=== PATIENT | female | born 1975 | race Caucasian/White ===

== ENCOUNTER 2021-03-15 05:50 | Inpatient (IN) | payer OTHER ==
[~2021-03-15] VITALS: Ht 170.2 cm; Wt 139.4 kg
--- NOTE | 2021-03-15 06:33 | RAD ---
EXAM: AP View of the chest DATE: 03/15/2021 6:21 AM INDICATION: Reason: soa / Spl. Instructions: / History: COMPARISON: No Prior FINDINGS: The heart is not enlarged. Mediastinal and hilar contours are normal. Patchy bibasilar airspace opacities as well as left midlung opacities likely consolidative process villa ch as pneumonia. No pleural effusion or pneumothorax. IMPRESSION: Patchy bibasilar airspace opacities as well as left midlung opacities likely consolidative process villa ch as pneumonia. Electronically signed by: Lyndon Chandra MD (03/15/2021 6:31 AM) DIYA
--- NOTE | 2021-03-15 06:52 | PHYS DOC ---
Past History Additional Past Medical Histor: systemic vasculitis Past Surgical History: Appendectomy, Cholecystectomy, Hysterectomy, Other Additional Past Surgical Histo: back surgery General Adult EDM: Chief Complaint: MULTIPLE COMPLAINTS HPI: HPI: 45-year-old female past medical history of autoimmune hepatitis (on prednisone 5mg daily), presents to the ED with complaints of headache, frontal sinus pressure, cough, fatigue and nausea stating she tested positive for Covid on Feb. Associated dyspnea and lost of taste/smell. Has not missed any of her prednisone. Is not a tobacco smoker. Is not vaccinated for Covid. PCP is with [facility]. Review of Systems: Review of Systems: Constitutional: Denies fever or chills Eyes: Denies change in visual acuity HENT: Denies hearing loss or sore throat Respiratory: Denies increased work of breathing or hemoptysis Cardiovascular: Denies chest pain or edema GI: Denies abdominal pain, vomiting, bloody stools or diarrhea : Denies dysuria or vaginal bleeding Musculoskeletal: Denies back pain or joint pain Integument: Denies rash or diaphoresis Neurologic: Denies focal weakness or sensory changes Endocrine: Denies polyuria or polydipsia Lymphatic: Denies swollen glands Psychiatric: Denies depression or anxiety Current Medications: Current Meds: Current Medications Medications (Trade) Dose Ordered Sig/Linda Start Time Stop Time Status Last Admin Dose Admin Acetaminophen (Tylenol) 650 mg 1X ONCE 03/15/21 07:00 03/15/21 07:01 Dexamethasone Sodium Phosphate (Decadron) 10 mg 1X ONCE 03/15/21 07:00 03/15/21 07:01 Sodium Chloride 1,000 ml @ 1,000 mls/hr 1X ONCE 03/15/21 07:00 03/15/21 07:59 Allergies: Allergies: Allergies Coded Allergies Type Severity Reaction Last Updated Verified Sulfa (Sulfonamide Antibiotics) Allergy Intermediate 03/15/21 Yes Physical Exam: PE: Constitutional: Well developed, well nourished, no acute distress, non-toxic appearance, obese HENT: Normocephalic, atraumatic, Eyes: EOMI, conjunctiva normal, no discharge. Neck: Normal range of motion, supple, Cardiovascular: S1/2 present, tachycardic Lungs & Thorax: Speaking in full sentences, bilateral equal chest rise, no tachypnea or increased work of breathing, 89% on room air Abdomen: soft, no tenderness, Skin: Warm, dry, no erythema, no rash. [] Back: No tenderness, no CVA tenderness. [] Extremities: No tenderness, no cyanosis, no lower extremity edema Neurologic: Alert and oriented X 3, normal motor function, normal sensory function, no focal deficits noted. [] Psychologic: Affect normal, judgement normal, mood normal. [] Current Patient Data: Vital Signs: Vital Signs Date Time Temp Pulse Resp B/P (MAP) Pulse Ox O2 Delivery O2 Flow Rate FiO2 03/15/21 06:10 102.9 106 20 147/90 (109) 88 Room Air EKG: EKG: Sinus tachycardia 106 bpm, left axis deviation, normal intervals, T wave inversion in lead II, 3, aVF, V2 through V6, no ST elevation or ST depression, no active chest pain Radiology/Procedures: Radiology/Procedures: IMAGING REPORT Signed PATIENT: ALPHONSO BOGGS ACCOUNT: [id number] : 1975 LOCATION: ER AGE: 45 SEX: F EXAM STATUS: REG ER ORD. PHYSICIAN: CARLOS LUNA DO REASON: soa PROCEDURE: PORTABLE CHEST 1V EXAM: AP View of the chest DATE: 03/15/2021 6:21 AM INDICATION: Reason: soa / Spl. Instructions: / History: COMPARISON: No Prior FINDINGS: The heart is not enlarged. Mediastinal and hilar contours are normal. Patchy bibasilar airspace opacities as well as left midlung opacities likely consolidative process such as pneumonia. No pleural effusion or pneumothorax. IMPRESSION: Patchy bibasilar airspace opacities as well as left midlung opacities likely consolidative process such as pneumonia. Electronically signed by: Lyndon Forbes MD (03/15/2021 6:31 AM) [facility] DICTATED AND SIGNED BY: LYNDON FORBES MD DATE: 03/15/21 0631 CC: ALEN MEJÍA MD; CARLOS LUNA DO ~MTH0 0 Heart Score: C/O Chest Pain: No Risk Factors: Risk Factors: DM, Current or recent (<one month) smoker, HTN, HLP, family history of CAD, obesity. Risk Scores: Score 0 - 3: 2.5% MACE over next 6 weeks - Discharge Home Score 4 - 6: 20.3% MACE over next 6 weeks - Admit for Clinical Observation Score 7 - 10: 72.7% MACE over next 6 weeks - Early Invasive Strategies Course & Med Decision Making: Course & Med Decision Making Pertinent Labs and Imaging studies reviewed. (See chart for details) COVID-19 CRITERIA: The patient was evaluated during the global COVID-19 pandemic, and that diagnosis was suspected/considered upon their initial presentation. Their evaluation, treatment and testing was consistent with current guidelines for patients who present with complaints or symptoms that may be related to COVID-19. I have spoken with the patient and/or caregivers. I have explained the patient's condition, diagnosis and treatment plan based on the information available to me at this time. I have answered the patient's and/or caregivers questions and answered any concerns. The patient and/or caregivers have as good an understanding of the patient's diagnosis, condition and treatment plan as can be expected at this point. The patient has been stabilized within the capability of the emergency department. The patient will be transported for further care and management or will be moved to an observation or inpatient service. I have communicated with the staff or medical practitioner taking over this patient's care. Mick Disclaimer: Dragon Disclaimer: This electronic medical record was generated, in whole or in part, using a voice recognition dictation system. Departure Departure: Impression: Primary Impression: COVID-19 Additional Impressions: Sepsis Pneumonia On supplemental oxygen by nasal cannula Disposition: ADMITTED INPATIENT Admitting Physician: Bo Booth Condition: STABLE Referrals: ALEN MEJÍA MD (PCP) CARLOS LUNA DO Mar 15, 2021 06:52
[2021-03-15] MEDS ORDERED: DEXAMETHASONE SOD PHOS 10 MG/ML VIAL. IVP ONE (07:00)
[2021-03-15] MEDS ORDERED: IV NORMAL SALINE 1,000ML 1,000 ML IV ONE (07:00)
[2021-03-15] MEDS ORDERED: ACETAMINOPHEN 325 MG TABLET PO ONE (07:00)
[2021-03-15 07:15] LABS: BGAS PH 7.48 (7.35-7.45)
[2021-03-15] MEDS ORDERED: AZITHROMYCIN 500 MG in IV NORMAL SALINE 250ML 250 ML IV ONE (07:15)
[2021-03-15] MEDS ORDERED: FAMOTIDINE 20 MG/2 ML VIAL IVP ONE (07:30)
[2021-03-15] MEDS ORDERED: ONDANSETRON PF 4 MG/2 ML VIAL. IVP ONE (07:30)
[2021-03-15] MEDS ORDERED: METOCLOPRAMIDE HCL 10 MG/2 ML VIAL. IVP ONE (07:30)
[2021-03-15 07:53] LABS: BASO % 0 % (0-3); EOS % 0 % (0-3); HEMATOCRIT 41.9 % (36.0-47.0); HEMOGLOBIN 14.2 g/dL (12.0-15.5); LYMPH # 0.4 x10^3/uL (1.0-4.8); LYMPH % 14 % (24-48); MEAN CORPUSCULAR HEMOGLOBIN 32 pg (25-35); MEAN CORPUSCULAR HGB CONC 34 g/dL (31-37); MEAN CORPUSCULAR VOLUME 94 fL (79-100); MONO # 0.2 x10^3/uL (0.0-1.1); MONO % 6 % (0-9); NEUT # 2.3 x10^3uL (1.8-7.7); NEUT % 80 % (31-73); PLATELET COUNT 121 x10^3/uL (140-400); RED BLOOD COUNT 4.47 x10^6/uL (3.50-5.40); RED CELL DISTRIBUTION WIDTH 12.8 % (11.5-14.5); WHITE BLOOD COUNT 2.9 x10^3/uL (4.0-11.0)
--- NOTE | 2021-03-15 07:58 | EKG ---
[address] [address] Test Date: 2021-03-15 Test Time: 07:03:35 Pat Name: ALPHONSO BOGGS Department: Room: ED HOLD 02 Gender: F Mechanic Assistant: BOZENA : 1975 Requested By: CARLOS LUNA Order Number: [id number] Reading MD: Simon Chandler Measurements Intervals Alpha Rate: 106 P: 23 WA: 146 QRS: -8 QRSD: 88 T: -27 QT: 334 QTc: 445 Interpretive Statements SINUS TACHYCARDIA LEFTWARD AXIS T ABNORMALITY IN ANTERIOR LEADS INFEROLATERAL LEADS ABNORMAL ECG RI6.02 No previous ECG available for comparison Electronically Signed On 03-16-2021 15:01:30 PRIZE JACKER by Simon Chandler
[2021-03-15] MEDS ORDERED: IV NORMAL SALINE 50ML 50 ML ONE (08:03)
[2021-03-15] MEDS ORDERED: cefTRIAXone SODIUM 1 GM VIAL ONE (08:03)
[2021-03-15 08:04] LABS: CALCIUM 8.2 mg/dL (8.5-10.1); CREATININE 0.8 mg/dL (0.6-1.0); GFR 77.6; POTASSIUM 3.9 mmol/L (3.5-5.1)
[2021-03-15 08:17] LABS: ALBUMIN 3.4 g/dL (3.4-5.0); ALBUMIN/GLOBULIN RATIO 1.1 (1.0-1.7); TOTAL BILIRUBIN 0.6 mg/dL (0.2-1.0); TOTAL PROTEIN 6.4 g/dL (6.4-8.2)
[2021-03-15 08:30] LABS: PREG TEST PT QUAL NEGATIVE (NEG)
[2021-03-15 08:51] LABS: INFLUENZA A PATIENT NEGATIVE (NEGATIVE); INFLUENZA B PATIENT NEGATIVE (NEGATIVE)
[2021-03-15] MEDS ORDERED: IV NORMAL SALINE 250ML 250 ML ONE (09:27)
[2021-03-15] MEDS ORDERED: AZITHROMYCIN 500 MG VIAL. IV ONE ×2 (09:27→09:30)
[2021-03-15 11:05] LABS: BACTERIA,URINE FEW /HPF (0-FEW); BILIRUBIN,URINE SMALL (NEG); CLARITY,URINE HAZY; COLOR,URINE YELLOW; GLUCOSE,URINE NEG (NEG); NITRITE,URINE NEG (NEG); RBC,URINE RARE /HPF (0-2); SQUAMOUS EPITHELIAL CELL,UR MANY /LPF
--- NOTE | 2021-03-15 13:30 | HP ---
DATE OF SERVICE: 03/15/2021 ADMIT DATE: 03/15/2021 ATTENDING PHYSICIAN: Dr. Booth. CHIEF COMPLAINT: Shortness of breath. HISTORY OF PRESENT ILLNESS: The patient is a 45-year-old female with multiple medical issues. She comes into the ED today complaining of frontal headaches, cough, fatigue, nausea and a positive COVID test on 03/01, 2 weeks ago. She has associated dyspnea and she was found to be hypoxemic, supplemental oxygen was added at 2 liters. Chest x-ray showed nonspecific infiltrate consistent with COVID. She has not been vaccinated. She is admitted then with COVID pneumonia and respiratory failure. PAST MEDICAL HISTORY: Significant for autoimmune hepatitis. She takes daily prednisone along with a history of associated vasculitis. PAST SURGICAL HISTORY: She has had a previous appendectomy, cholecystectomy, hysterectomy for dysfunctional uterine bleeding and back surgery. ALLERGIES: She has allergies to SULFA DRUGS. CURRENT HOME MEDICATIONS: She was on scheduled antirejection meds and low-dose prednisone. I am in the process of getting the list and the dosage as appropriate. SOCIAL HISTORY: She is a nonsmoker and nondrinker. FAMILY HISTORY: Father of chronic alcoholism at age 61. He had cirrhosis. Mom is alive and doing well at age 68. She is not working. She is disabled, recently moved here from [place], [place]. No COVID exposure, but she has not been vaccinated. REVIEW OF SYSTEMS: All other systems reviewed and turned to be negative. PHYSICAL EXAMINATION: GENERAL: When I saw her, this is a pleasant, middle-aged female. VITAL SIGNS: Initial vital signs in the ED showed a blood pressure of 147/90, temperature 102.9 degrees Fahrenheit, pulse 100 and regular, oxygen saturation 88% on room air, 2 liters by nasal cannula was added. HEENT: Head is without trauma. Pupils are reactive. Sclerae nonicteric. Oropharynx clear. NECK: Supple, no bruits. LUNGS: Minimal rhonchi at bases. CARDIOVASCULAR: Showed regular heart tones. No gallops. ABDOMEN: Obese, protuberant. No organomegaly. Bowel sounds were hypoactive. EXTREMITIES: Showed trace edema. NEUROLOGIC: Focally intact. Speech is fluent. PERTINENT LABORATORY STUDIES: Her hemoglobin was 14.2 g/dL, white count 2900. Chemistry panel fairly unremarkable with normal sodium and electrolytes. Nonfasting blood sugar 137. IMAGING STUDIES: Chest x-ray done in the ED showed patchy bilateral airspace opacities consistent with atypical pneumonia. ASSESSMENT: 1. A 45-year-old female with COVID-19 pneumonia in an unvaccinated patient. 2. Hypoxemia, requiring supplemental oxygen. 3. Morbid obesity. 4. History of autoimmune hepatitis. 5. History of systemic vasculitis. PLAN: 1. Admit to the inpatient unit. 2. Home medications will be reviewed and continued. 3. Continue supplemental oxygen to be weaned down. 4. Diet as tolerated. 5. Empiric Lovenox. ADITYA/DARREL DR: Ludwig TID: [id number]
[2021-03-15 13:40] VITALS: BP 129/80
--- NOTE | 2021-03-15 14:18 | NUR ---
Nursing note PT was admitted to the floor from the ED, with complains of weakness and SOB, and diagnosed with Covid + , Sepsis, Pneumonia and Hypoxia. PT was placed in the room, admission vitals taken, admission questions asked and documented. Admission assessments done and documented. Bed low, call light within reach, PT verbalized she does not have any other needs. Will continue to monitor.
[2021-03-15] MEDS ORDERED: MECL-75 PO (14:20)
[2021-03-15] MEDS ORDERED: FOLI20CA PO (14:20)
[2021-03-15] MEDS ORDERED: MYCO500T PO (14:20)
[2021-03-15] MEDS ORDERED: INSU100I32 SQ (14:20)
[2021-03-15] MEDS ORDERED: CALC500T30 PO (14:20)
[2021-03-15] MEDS ORDERED: METH100V IJ (14:20)
[2021-03-15] MEDS ORDERED: CHOL10004 PO (14:20)
[2021-03-15] MEDS ORDERED: PRED2.5T PO (14:20)
[2021-03-15] MEDS ORDERED: OMEP40CA7 PO (14:20)
[2021-03-15] MEDS ORDERED: INSU100C SQ (14:20)
[2021-03-15] MEDS ORDERED: METO50TA29 PO (14:20)
[2021-03-15] MEDS ORDERED: GABA600T7 PO (14:20)
[2021-03-15] MEDS ORDERED: CETI10CA PO (14:20)
[2021-03-15] MEDS ORDERED: NON FORMULARY ITEM (Insulin Lispro (Humalog) 100 UNIT) SQ SCH (17:00)
[2021-03-15] MEDS ORDERED: DEXTROSE 50% 25 GM / 50ML DISP.SYRIN. IV PRN (17:45)
[2021-03-15 19:00] VITALS: BP 144/91
[2021-03-15] MEDS: MYCOPHENOLATE MOFETIL PO SCH (20:53)
[2021-03-15] MEDS: GABAPENTIN 300 MG CAPSULE. PO SCH (20:53)
[2021-03-15] MEDS: METHOCARBAMOL 500 MG TABLET PO SCH (20:54)
[2021-03-15] MEDS: CETIRIZINE HCL 10 MG TABLET PO SCH (20:57)
[2021-03-15] MEDS: INSULIN GLARGINE SYRINGE. SQ SCH (21:47)
[2021-03-16 06:01] VITALS: BP 133/77
[2021-03-16 06:02] VITALS: BP 133/77
[2021-03-16] MEDS: METHOCARBAMOL 500 MG TABLET PO SCH ×3 (08:12→21:13)
[2021-03-16] MEDS: CHOLECALCIFEROL (VITAMIN D3) 1,000 UNIT TABLET PO SCH (08:13)
[2021-03-16] MEDS: PANTOPRAZOLE 40 MG TABLET. PO SCH (08:13)
[2021-03-16] MEDS: FOLIC ACID 1 MG TABLET PO SCH (08:13)
[2021-03-16] MEDS: predniSONE 5 MG TABLET PO SCH (08:14)
[2021-03-16] MEDS: GABAPENTIN 300 MG CAPSULE. PO SCH ×3 (08:14→21:13)
[2021-03-16] MEDS: MYCOPHENOLATE MOFETIL PO SCH ×2 (08:15→21:13)
[2021-03-16] MEDS ORDERED: INSULIN GLARGINE SYRINGE. SQ SCH (09:00)
[2021-03-16] MEDS: METOPROLOL SUCC 24HR ER 50 MG TAB.ER.24H. PO SCH (09:00)
--- NOTE | 2021-03-16 10:55 | PN ---
DATE: 03/16/2021 ATTENDING PHYSICIAN: Dr. Booth. SUBJECTIVE: Flat affect. She is still dyspneic with minimal exertion. She is comfortable at rest. OBJECTIVE FINDINGS: VITAL SIGNS: Blood pressure this morning is 133/77 mmHg, pulse is 90 and regular. She is afebrile. Oxygen saturation 91% on 3 liters by nasal cannula. HEENT: Head is without trauma. Pupils are reactive. Sclerae nonicteric. Oropharynx is clear. NECK: Supple. No bruits. LUNGS: Coarse rhonchi bilaterally. CARDIOVASCULAR: Showed regular heart tones. ABDOMEN: Soft. EXTREMITIES: Without edema. NEUROLOGIC FINDINGS: Focally intact. Speech is fluent. ASSESSMENT: 1. This 45-year-old female has COVID-19 pneumonia. 2. Acute respiratory failure with hypoxemia, requiring supplemental oxygen. 3. Morbid obesity. 4. History of autoimmune hepatitis. 5. History of systemic vasculitis. 6. Chronic immunosuppression. PLAN: 1. Home meds have been reviewed and restarted, especially her mycophenolate. 2. We are trying to wean down her oxygen requirements. 3. I will try to arrange for home oxygen with tentative discharge plans tomorrow if she is stable and does not require higher doses of supplemental oxygen. ALYSA DR: ADITYA/shanita TID: [id number]
[2021-03-16 11:00] VITALS: BP 126/83
[2021-03-16] MEDS: ACETAMINOPHEN 500 MG TABLET PO PRN ×2 (11:22→21:30)
[2021-03-16] MEDS: INSULIN LISPRO 300 UNITS/3 ML VIAL. SQ SCH ×2 (12:17→17:00)
[2021-03-16 15:15] VITALS: BP 116/72
[2021-03-16] MEDS ORDERED: INSULIN LISPRO 300 UNITS/3 ML VIAL. SQ SCH (18:00)
[2021-03-16 20:19] VITALS: BP 156/78
[2021-03-16] MEDS: CETIRIZINE HCL 10 MG TABLET PO SCH (21:13)
[2021-03-16] MEDS: INSULIN GLARGINE SYRINGE. SQ SCH (21:16)
[2021-03-17 00:30] VITALS: BP 102/60
[2021-03-17 06:08] VITALS: BP 124/76
[2021-03-17] MEDS: INSULIN LISPRO 300 UNITS/3 ML VIAL. SQ SCH ×2 (08:00→12:00)
[2021-03-17] MEDS: METHOCARBAMOL 500 MG TABLET PO SCH (08:45)
[2021-03-17] MEDS: METOPROLOL SUCC 24HR ER 50 MG TAB.ER.24H. PO SCH (08:46)
[2021-03-17] MEDS: ACETAMINOPHEN 500 MG TABLET PO PRN (08:47)
[2021-03-17] MEDS: GABAPENTIN 300 MG CAPSULE. PO SCH (08:47)
[2021-03-17] MEDS: FOLIC ACID 1 MG TABLET PO SCH (08:47)
[2021-03-17] MEDS: predniSONE 5 MG TABLET PO SCH (08:48)
[2021-03-17] MEDS: PANTOPRAZOLE 40 MG TABLET. PO SCH (08:48)
[2021-03-17] MEDS: CHOLECALCIFEROL (VITAMIN D3) 1,000 UNIT TABLET PO SCH (08:48)
[2021-03-17] MEDS: MYCOPHENOLATE MOFETIL PO SCH (08:49)
--- NOTE | 2021-03-17 10:30 | NUR ---
PATIENT O2 REASSESSED, PATIENT WAS ON 3 L WITH 90% OF 02, INCREASED UP TO 4 L WITH 91%. DR GALLEGO NOTIFIED. DR GALLEGO IS PLANNING TO DISCHARGED PATIENT WITH SUPPLEMENTAL O2 AT HOME. PATIENT WAS ADVISED TO OBTAIN PULSE OXIMETER TO MONITOR HER O2 AT HOME.
[2021-03-17 10:50] VITALS: BP 104/68
--- NOTE | 2021-03-17 11:14 | DS ---
DATE OF DISCHARGE: 03/17/2021 ATTENDING PHYSICIAN: Dr. Booth. FINAL DISCHARGE DIAGNOSES: 1. A 45-year-old female with COVID-19 pneumonia in an unvaccinated patient. 2. Hypoxemia, requiring supplemental oxygen. 3. Morbid obesity. 4. History of immunocompromised on antirejection meds. 5. History of autoimmune hepatitis. 6. History of systemic vasculitis. HISTORY AND PHYSICAL: The patient is a 45-year-old female recently moved here from [place], [place]. She has been followed at the [facility] in [place]. She has a longstanding history of immunocompromise. She was not vaccinated. She was admitted through the ED with increasing shortness of breath, positive COVID test and nonspecific infiltrates in the bases on chest x-ray. PHYSICAL EXAMINATION: Please see the dictated note. PERTINENT LABORATORY AND X-RAY STUDIES: Her admission white count was 2900. This will be followed as an outpatient. Hemoglobin 14.2 g/dL. Nonfasting blood sugar 113. Serology indeed positive for the coronavirus. Urinalysis was clear. COURSE IN THE HOSPITAL: She was admitted. She was started on empiric Decadron, corticosteroids and continuation of her mycophenolate. Home meds were somewhat simplified. She did well. By the third hospital day, her oxygen saturations are adequate between 2 and 3 liters by nasal cannula. Arrangements were then made for home oxygen to be delivered. She can convalescent at home. I wrote her a script for prednisone 20 mg daily, to be slowly tapered. In addition, she should continue her home regimen including calcium daily, Zyrtec p.r.n., vitamin D3, folic acid, Neurontin 600 mg t.i.d., insulin as scheduled, meclizine, Robaxin p.r.n., metoprolol, mycophenolate 500 mg b.i.d., omeprazole, and increase prednisone dose to 20 mg daily with a slow taper. She was discharged then from our hospital in stable condition with explicit drug and followup care. Total discharge time is 41 minutes. ADITYA/MARAL DR: ADITYA/shanita TID: [id number]
--- NOTE | 2021-03-17 13:03 | NUR ---
PATIENT IS DISCHARGED HOME WITH SUPPLEMENTAL O2. DISCHARGED INSTRUCTIONS REVIEWED, PATIENT VERBALIZED UNDERSTANDING. PATIENT LEFT UNIT VIA W/C ACCOMP BY THIS RN. PATIENT IS TAKEN HOME BY FAMILY MEMBER VIA PERSONAL VEHICLE.
== END 2021-03-17 13:00 | disposition home or self-care (01) | DRG 871 ==
LOC: ER 05:50 → ER HOLD 07:17 → 1 SOUTH 13:20
PROVIDERS: ADMIT Hospitalist; ATTEND Hospitalist
DX: A41.89 Other specified sepsis (principal); U07.1 COVID-19; J12.82 Pneumonia due to coronavirus disease 2019; J96.01 Acute respiratory failure with hypoxia; D84.821 Immunodeficiency due to drugs; Z68.42 Body mass index [BMI] 45.0-49.9, adult; M31.8 Other specified necrotizing vasculopathies; E66.01 Morbid (severe) obesity due to excess calories; K75.4 Autoimmune hepatitis; Z79.52 Long term (current) use of systemic steroids; Z79.899 Other long term (current) drug therapy; Z90.49 Acquired absence of other specified parts of digestive tract; Z90.710 Acquired absence of both cervix and uterus; Z28.3 Underimmunization status
CPT/HCPCS: 36415; 36600; 71045; 80053; 81001; 82550; 82803; 82947; 83605; 83880; 84484; 84703; 85025; 85379; 86140; 87086; 87426; 87804; 93005; 94640; 96365; 96367; 96375; J0456; J0696; J1100; J1815; J2405; J2765; J3490; J7050; J7512; U0003; 99285-25; J7030